=== PATIENT | male | born 1950 | race Caucasian/White ===

== ENCOUNTER → 2017-07-13 | Outpatient (CLI) | payer MEDICARE, OTHER | LOC: M.RAD 08:46 | DX: Z13.820 Encounter for screening for osteoporosis (principal); M85.88 Other specified disorders of bone density and structure, other site; Z87.81 Personal history of (healed) traumatic fracture ==

== ENCOUNTER → 2017-10-26 | Outpatient (CLI) | payer MEDICARE, OTHER ==
--- NOTE | 2017-10-26 15:23 | EXE ---
[place] [address] STRESS ECHOCARDIOGRAM Name: ARASH KING Room: [facility]#: [id number] Admission: 10/26/17 Attend Phys: Jak Bruno Discharge: Date of : 48 Date of Service: 10/26/17 1523 Report #: [id number] THIS REPORT FOR: //name// APPROVED REPORT Study performed: 10/26/2017 11:13:00 Exam: Stress Echocardiogram Indication: Palpitations Patient Location: Out-Patient Stress Nurse: Lakshmi Guadalupe RN Supervising Physician: Sin Huerta MD Status: routine Ht: 6 ft 1 in HR: 68 bpm BP: 134/79 mmHg Procedure The patient underwent an Exercise Stress Test using the Pablo Protocol. Blood pressure, heart rate, and EKG were monitored. An Echocardiogram was performed by burner technician in four stages in quad fashion. At peak stress, four selected images were obtained and placed side by side with resting images for comparison. Stress Test Details Stress Test: Exercise stress testing was performed using a Pablo protocol. HR Resting HR: 68 bpm Max Heart Rate (APMHR): 153 bpm Max HR Achieved: 154 bpm Target HR (85% APMHR): 130 bpm % of APMHR: 100 Recovery HR: 86 bpm HR response to stress: Normal HR response to stress BP Resting BP: 134/79 mmHg Max BP: 210/91 mmHg Recovery BP: 159/85 mmHg ECG Resting ECG: Sinus Rhythm Stress ECG: Sinus Tachycardia Maximum ST Deviation: 0 mm Arrhythmia: None Recovery ECG: [place] [address] STRESS ECHOCARDIOGRAM Name: ARASH KING Stephenie [id number] Admission: 10/26/17 Attend Phys: Jak Bruno Discharge: Date of : 48 Date of Service: 10/26/17 1523 Report #: [id number] Recovery ST Deviation: 0 mm Recovery Arrhythmia: None Clinical Reason for Termination: Completed protocol, Dyspnea, Leg pain Exercise duration: 8 min 00 sec Highest Stage Achieved: Stage 2: 2.5 mph at 12% grade. Exercise capacity: 10.13 METs Pre-Stress Echo The resting Echocardiogram showed normal left ventricular contractility with an estimated Ejection Fraction of about 55-60%. Post-Stress Echo The stress Echocardiogram showed normal left ventricular contractility with an estimated Ejection Fraction of about 65-70%. Conclusion Clinical Response: Non-ischemic Exercise Capacity: Average Stress ECG Response: Non-ischemic Stress Echo Images: Non-ischemic low risk stress echo for future cardiac events Other Information Study Quality: Good <Conclusion> low risk stress echo for future cardiac events <ELECTRONICALLY SIGNED> By: Sin Huerta MD, [facility] 10/26/17 1523 1523 152 Sin Huerta MD, [facility] /INF
== END ==
LOC: M.CRD 10:52
DX: R00.2 Palpitations (principal); Z82.49 Family history of ischemic heart disease and other diseases of the circulatory system